=== PATIENT | male | born 1965 | race American Indian/Alaskan Native ===

== ENCOUNTER 2021-10-06 01:02 | Emergency (ER) | payer BC, MEDICAID, OTHER ==
--- NOTE | 2021-10-06 01:46 | EDM.PDOC ---
ED HPI GENERAL MEDICAL PROBLEM - General Chief Complaint: Gastrointestinal Problem Stated Complaint: BLOOD IN THE STOOL, LOSS OF CUAUHTEM[place], STOMACH CRAMPS Time Seen by Provider: 10/06/21 01:20 Source of Information: Reports: Patient, RN, RN Notes Reviewed History Limitations: Reports: No Limitations - History of Present Illness INITIAL COMMENTS - FREE TEXT/NARRATIVE: Hany is a 55 y/o male with a history of chronic alcohol use who presents to the ED via personal vehicle with complaints of nausea, vomiting, rectal bleeding, and generalized abdominal pain. He reports his symptoms began approximately two weeks ago and have maintained in severity over that time. He describes his rectal bleeding a bright red blood that lines the toilet bowl. His vomiting precedes the onset of rectal bleeding by an amount of time he is unable to quantify, as he states he vomits "..most mornings." The patient reports he drinks approximately one case of alcohol every day, which he has done "..f orever." He denies fever, shaking chills, vision changes, dizziness, chest pain/pressure, shortness of breath, palpitations, dyspepsia, diarrhea, constipation, or dysuria. The patient reports his last drink of alcohol was two hours prior to his arrival to this facility. His last meal was yesterday evening. He attests to smoking 1/4 pack of cigarettes daily; he denies recreational drug use. - Related Data Allergies Allergy/AdvReac Type Severity Reaction Status Date / Time Penicillins Allergy Cannot Verified 12/09/14 17:05 Remember Home Meds: Home Meds . [No Known Home Meds] 08/28/14 [History] ED ROS GENERAL - Review of Systems Review Of Systems: Comprehensive ROS is negative, except as noted in HPI. ED EXAM, GI/ABD - Physical Exam Exam: See Below Exam Limited By: No Limitations General Appearance: Alert, No Apparent Distress Eyes: Bilateral: Normal Appearance, EOMI Ears: Normal External Exam, Normal Canal, Hearing Grossly Normal, Normal TMs Nose: Normal Inspection, Normal Mucosa, No Blood Throat/Mouth: Normal Inspection, Normal Oropharynx, Normal Voice, No Airway Compromise Head: Atraumatic, Normocephalic Neck: Normal Inspection, Supple, Non-Tender, Full Range of Motion. No: Lymphadenopathy (L), Lymphadenopathy (R) Respiratory/Chest: No Respiratory Distress, Lungs Clear, Normal Breath Sounds, No Accessory Muscle Use, Chest Non-Tender Cardiovascular: Normal Peripheral Pulses, Regular Rate, Rhythm, No Gallop, No Murmur, No Rub GI/Abdominal Exam: Normal Bowel Sounds, Soft, No Distention, No Abnormal Bruit, No Mass, Pelvis Stable, Tender (Generalized) (Male) Exam: Deferred Rectal (Males) Exam: Deferred Back Exam: Normal Inspection, Full Range of Motion. No: CVA Tenderness (L), CVA Tenderness (R) Extremities: Normal Inspection, Normal Range of Motion, Normal Capillary Refill Neurological: Alert, Oriented, CN II-XII Intact, Normal Cognition, Normal Gait, No Motor/Sensory Deficits Psychiatric: Normal Affect, Normal Mood Skin Exam: Warm, Dry, Intact, Normal Color, No Rash. No: Cyanosis, Jaundice, Mottled, Pallor Course - Vital Signs Last Recorded V/S: Last Vital Signs Temp 99.1 F 10/06/21 03:07 Pulse 74 10/06/21 03:07 Resp 18 10/06/21 03:07 BP 108/73 10/06/21 03:07 Pulse Ox 97 10/06/21 03:07 - Orders/Labs/Meds Labs: Laboratory Tests 10/06/21 10/06/21 10/06/21 Range/Units 01:45 01:45 01:45 WBC 10.6 H (5.0-10.0) 10^3/uL RBC 5.15 (4.6-6.2) 10^6/uL Hgb 16.3 (14.0-18.0) g/dL Hct 49.2 (40.0-54.0) % MCV 95.5 (80-100) fL MCH 31.7 (27.0-34.0) pg MCHC 33.1 (33.0-35.0) g/dL Plt Count 261 D (150-450) 10^3/uL Neut % (Auto) 67.1 (42.2-75.2) % Lymph % (Auto) 25.1 (20.5-50.1) % [place] % (Auto) 6.0 (2-8) % Eos % (Auto) 1.3 (1.0-3.0) % Baso % (Auto) 0.5 (0.0-1.0) % Sodium 144 (136-145) mmol/L Potassium 3.9 (3.5-5.1) mmol/L Chloride 106 (98-107) mmol/L Carbon Dioxide 27 (21-32) mmol/L Anion Gap 14.9 H (7-13) mEq/L BUN 4 L (7-18) mg/dL Creatinine 0.97 (0.70-1.30) mg/dL Est Cr Clr Drug Dosing 85.21 mL/min Estimated GFR (MDRD) > 60 BUN/Creatinine Ratio 4.1 (No establ ref range) Glucose 128 H (70-99) mg/dL Lactic Acid 1.3 (0.4-2.0) mmol/L Calcium 7.8 L (8.5-10.1) mg/dL Total Bilirubin 0.3 (0.2-1.0) mg/dL AST 61 H (15-37) U/L ALT 44 (16-63) U/L Alkaline Phosphatase 153 H (46-116) U/L C-Reactive Protein < 0.2 (0.0-0.9) mg/dL Total Protein 9.2 H (6.4-8.2) g/dL Albumin 3.2 L (3.4-5.0) g/dL Globulin 6.0 Albumin/Globulin Ratio 0.53 Urine Color (YELLOW) Urine Appearance (CLEAR) Urine pH (5.0-9.0) Ur Specific [place] (1.005-1.030) Urine Protein (NEGATIVE) Urine Glucose (UA) (NEGATIVE) Urine Ketones (NEGATIVE) Urine Occult Blood (NEGATIVE) Urine Nitrite (NEGATIVE) Urine Bilirubin (NEGATIVE) Urine Urobilinogen (0.2-1.0) mg/dL Ur Leukocyte Esterase (NEGATIVE) Urine Opiates Screen (NEGATIVE) Ur Oxycodone Screen (NEGATIVE) Urine Methadone Screen (NEGATIVE) Ur Barbiturates Screen (NEGATIVE) U Tricyclic Antidepress (NEGATIVE) Ur Phencyclidine Scrn (NEGATIVE) Ur Amphetamine Screen (NEGATIVE) U Methamphetamines Scrn (NEGATIVE) Urine MDMA Screen (NEGATIVE) U Benzodiazepines Scrn (NEGATIVE) Urine Cocaine Screen (NEGATIVE) U Marijuana (THC) Screen (NEGATIVE) Ethyl Alcohol 327 (0) mg/dL 10/06/21 10/06/21 Range/Units 02:45 02:48 WBC (5.0-10.0) 10^3/uL RBC (4.6-6.2) 10^6/uL Hgb (14.0-18.0) g/dL Hct (40.0-54.0) % MCV (80-100) fL MCH (27.0-34.0) pg MCHC (33.0-35.0) g/dL Plt Count (150-450) 10^3/uL Neut % (Auto) (42.2-75.2) % Lymph % (Auto) (20.5-50.1) % [place] % (Auto) (2-8) % Eos % (Auto) (1.0-3.0) % Baso % (Auto) (0.0-1.0) % Sodium (136-145) mmol/L Potassium (3.5-5.1) mmol/L Chloride (98-107) mmol/L Carbon Dioxide (21-32) mmol/L Anion Gap (7-13) mEq/L BUN (7-18) mg/dL Creatinine (0.70-1.30) mg/dL Est Cr Clr Drug Dosing mL/min Estimated GFR (MDRD) BUN/Creatinine Ratio (No establ ref range) Glucose (70-99) mg/dL Lactic Acid (0.4-2.0) mmol/L Calcium (8.5-10.1) mg/dL Total Bilirubin (0.2-1.0) mg/dL AST (15-37) U/L ALT (16-63) U/L Alkaline Phosphatase (46-116) U/L C-Reactive Protein (0.0-0.9) mg/dL Total Protein (6.4-8.2) g/dL Albumin (3.4-5.0) g/dL Globulin Albumin/Globulin Ratio Urine Color Yellow (YELLOW) Urine Appearance Clear (CLEAR) Urine pH 5.5 (5.0-9.0) Ur Specific [place] 1.025 (1.005-1.030) Urine Protein Negative (NEGATIVE) Urine Glucose (UA) Negative (NEGATIVE) Urine Ketones Negative (NEGATIVE) Urine Occult Blood Negative (NEGATIVE) Urine Nitrite Negative (NEGATIVE) Urine Bilirubin Negative (NEGATIVE) Urine Urobilinogen 0.2 (0.2-1.0) mg/dL Ur Leukocyte Esterase Negative (NEGATIVE) Urine Opiates Screen Negative (NEGATIVE) Ur Oxycodone Screen Negative (NEGATIVE) Urine Methadone Screen Negative (NEGATIVE) Ur Barbiturates Screen Negative (NEGATIVE) U Tricyclic Antidepress Negative (NEGATIVE) Ur Phencyclidine Scrn Negative (NEGATIVE) Ur Amphetamine Screen Negative (NEGATIVE) U Methamphetamines Scrn Negative (NEGATIVE) Urine MDMA Screen Negative (NEGATIVE) U Benzodiazepines Scrn Negative (NEGATIVE) Urine Cocaine Screen Negative (NEGATIVE) U Marijuana (THC) Screen Positive H (NEGATIVE) Ethyl Alcohol (0) mg/dL Meds: Medications Discontinued Medications Generic Name Dose Route Start Last Admin Trade Name Hattie PRN Reason Stop Dose Admin Ondansetron HCl 4 mg 10/06/21 02:43 10/06/21 03:03 Ondansetron 4 Mg/2 Ml Sdv IVPUSH 10/06/21 02:44 4 mg ONETIME ONE Administration - Re-Assessments/Exams Free Text/Narrative Re-Assessment/Exam: 10/06/21 Zofran 4mg IVP administered. Findings of examination and lab work reviewed with patient. Patient instructed to refrain from alcohol use. Patient instructed to follow up with his PCP today or tomorrow for ongoing management of his chronic alcohol use. Supportive cares discussed. Red flag signs and symptoms which would warrant immediate reevaluation reviewed. Patient verbalized understanding and agreement with the plan of care. Departure - Departure Time of Disposition: 03:10 Disposition: Home, Self-Care 01 Condition: Good Clinical Impression: Acute alcohol intoxication Qualifiers: Complication of substance-induced condition: uncomplicated Qualified Code(s): F10.920 - Alcohol use, unspecified with intoxication, uncomplicated - Discharge Information *PRESCRIPTION DRUG MONITORING PROGRAM REVIEWED*: Not Applicable *COPY OF PRESCRIPTION DRUG MONITORING REPORT IN PATIENT MONA: Not Applicable Instructions: Nausea and Vomiting, Adult, [id number], Dehydration, Adult, [id number], Alcohol Intoxication Forms: ED Department Discharge Additional Instructions: Rx: Zofran ODT 4mg (#12) 1.) Do not drink alcohol. 2.) Drink small, frequent sips of water to stay hydrated while avoiding nausea. 3.) Eat small, snack-sized meals to avoid nausea. Eat a bland diet, avoiding spicy, greasy, high-fat foods. 4.) Follow up with your primary care provider in 1-2 days regarding today's visit. Sepsis Event Note (ED) - Evaluation Sepsis Screening Result: No Definite Risk - Focused Exam Vital Signs: Vital Signs Temp Pulse Resp BP Pulse Ox 10/06/21 03:07 99.1 F 74 18 108/73 97 10/06/21 01:15 97.1 F 99 18 137/98 H 92 L
[2021-10-06 02:20] LABS: ANION GAP 14.9 mEq/L (7-13); CHLORIDE,CL 106 mmol/L (98-107); SODIUM,NA 144 mmol/L (136-145)
[2021-10-06] MEDS ORDERED: Ondansetron 4 MG/2 ML SDV IVPUSH ONE (02:43)
[2021-10-06 03:01] LABS: BENZODIAZEPINE,URINE NEGATIVE (NEGATIVE); MDMA (ECSTASY), URINE NEGATIVE (NEGATIVE); METHADONE,URINE NEGATIVE (NEGATIVE); METHAMPHETAMINES,URINE NEGATIVE (NEGATIVE); OPIATES,URINE NEGATIVE (NEGATIVE)
[2021-10-06 03:02] LABS: AMPHETAMINES,URINE NEGATIVE (NEGATIVE); BARBITURATES,URINE NEGATIVE (NEGATIVE); OXYCODONE,URINE NEGATIVE (NEGATIVE); PHENCYCLIDINE,URINE NEGATIVE (NEGATIVE); TCA,URINE NEGATIVE (NEGATIVE)
[2021-10-06 03:08] VITALS: BP 108/73; PULSE 74
== END 2021-10-06 03:18 | disposition home or self-care (01) ==
LOC: DL.ED 01:02
DX: F10.129 Alcohol abuse with intoxication, unspecified (principal); Z88.0 Allergy status to penicillin; Y90.8 Blood alcohol level of 240 mg/100 ml or more
CPT/HCPCS: 36415; 80053; 80305-QW; 80307; 81003; 82272; 83605; 85025; 86140; 96374; 99284-25; J2405

== ENCOUNTER 2022-11-11 15:18 | Emergency (ER) | payer BC, MEDICAID ==
[2022-11-11] MEDS ORDERED: Ciprofloxacin 500 MG Tab PO ONE (15:19)
[2022-11-11 16:17] LABS: METHAMPHETAMINES,URINE NEGATIVE (NEGATIVE)
[2022-11-11 16:18] LABS: AMPHETAMINES,URINE NEGATIVE (NEGATIVE); BARBITURATES,URINE NEGATIVE (NEGATIVE); BENZODIAZEPINE,URINE NEGATIVE (NEGATIVE); MDMA (ECSTASY), URINE NEGATIVE (NEGATIVE); METHADONE,URINE NEGATIVE (NEGATIVE); OPIATES,URINE NEGATIVE (NEGATIVE); OXYCODONE,URINE NEGATIVE (NEGATIVE); PHENCYCLIDINE,URINE NEGATIVE (NEGATIVE); TCA,URINE NEGATIVE (NEGATIVE)
[2022-11-11 17:42] VITALS: BP 96/67; PULSE 74
[2022-11-11] MEDS ORDERED: Ciprofloxacin 500 MG Tab ONE (17:48)
[2022-11-11] MEDS: Acetaminophen 500 MG Tab PO ONE (17:53)
[2022-11-11] MEDS: Ciprofloxacin 500 MG Tab PO ONE (17:53)
[2022-11-14 11:46] LABS: C.TRACHOMATIS BY TMA Negative (Negative); N.GONORRHOEAE BY TMA Negative (Negative)
== END 2022-11-11 17:55 | disposition home or self-care (01) ==
LOC: DL.ED 15:18
DX: N39.0 Urinary tract infection, site not specified (principal); Z88.0 Allergy status to penicillin
CPT/HCPCS: 80305; 81001; 87086; 87088; 87186; 87491; 87591; 99284; A9270

== ENCOUNTER 2023-05-23 10:44 | Emergency (ER) | payer BC, MEDICAID ==
[~2023-05-23 10:44] MED LIST: Ketorolac 30 MG/ML SDV IVPUSH ONE
[2023-05-23 11:35] VITALS: BP 136/93; PULSE 75
== END 2023-05-23 11:24 | disposition home or self-care (01) ==
LOC: DL.ED 10:44
DX: S22.42XA Multiple fractures of ribs, left side, initial encounter for closed fracture (principal); F17.210 Nicotine dependence, cigarettes, uncomplicated; Z88.0 Allergy status to penicillin; W01.0XXA Fall on same level from slipping, tripping and stumbling without subsequent striking against object, initial encounter
CPT/HCPCS: 71101; 94010; 96374; 99282; 99283; J1885